=== PATIENT | male | born 1980 | race African-American/Black ===

== ENCOUNTER 2018-06-04 23:02 | Emergency (ER) | payer OTHER ==
[~2018-06-04] VITALS: Ht 185.4 cm; Wt 84.4 kg
[~2018-06-04 23:02] MED LIST: CYCLOBENZAPRINE5 MG PO; LISINOPRIL10 MG PO
[2018-06-04 23:04] VITALS: BP 159/99
== END 2018-06-04 23:35 | disposition short-term general hospital (02) ==
LOC: ER 23:02
DX: S41.101A Unspecified open wound of right upper arm, initial encounter (principal); F17.210 Nicotine dependence, cigarettes, uncomplicated; W34.00XA Accidental discharge from unspecified firearms or gun, initial encounter; Y92.89 Other specified places as the place of occurrence of the external cause; Y93.01 Activity, walking, marching and hiking; Y99.8 Other external cause status